=== PATIENT | female | born 1970 | race Two or more races ===

== ENCOUNTER 2022-03-12 13:03 | Emergency (ER) | payer OTHER ==
[2022-03-12 13:16] VITALS: BP 120/80; PULSE 81; RESP 18; TEMP 98; BMI 31.1
[2022-03-12] MEDS ORDERED: SILVER SULFADIAZINE 1% TOP CREAM 50 GM JAR TP ONE ×2 (14:11→14:22)
== END 2022-03-12 14:34 | disposition home or self-care (01) ==
LOC: JER 13:03
DX: T21.11XA Burn of first degree of chest wall, initial encounter (principal); T21.21XA Burn of second degree of chest wall, initial encounter; X10.0XXA Contact with hot drinks, initial encounter
CPT/HCPCS: 99283-25